=== PATIENT | female | born 1965 | race Caucasian/White ===

== ENCOUNTER → 2016-08-27 | Outpatient (CLI) | payer OTHER ==
--- NOTE | 2016-08-27 12:26 | PCVCIMAG ---
APPROVED REPORT Exam: Stress Echocardiogram Indication: Family hx of cad, smoking, abn. calcium score Patient Location: Echo lab Stress Nurse: Elmira Toscano RN Status: routine HR: 74 bpm Rhythm: NSR Procedure The patient underwent an Exercise Stress Test using the Wero Protocol. Blood pressure, heart rate, and EKG were monitored. An Echocardiogram was performed by cable television technician in four stages in quad fashion. At peak stress, four selected images were obtained and placed side by side with resting images for comparison. Stress Test Details Stress Test: Exercise stress testing was performed using a Wero protocol. HR Resting HR: 74 bpmMax Heart Rate (APMHR): 169 bpm Max HR Achieved: 157 bpmTarget HR (85% APMHR): 143 bpm % of APMHR: 92 HR response to stress: Normal HR response to stress BP Resting BP: 132/80 mmHg Max BP: 184/82 mmHg ECG Resting ECG: Sinus Rhythm Stress ECG: Sinus Rhythm Maximum ST Deviation: 0 mm Arrhythmia: None Recovery ECG: Sinus Rhythm Recovery ST Deviation: 0 mm Clinical Reason for Termination: Maximal effort Stress Symptoms: Dyspnea Exercise duration: 9 min 45 sec Highest Stage Achieved: Stage 3: 3.4 mph at 14% grade. Exercise capacity: 12.50 METs Pre-Stress Echo The resting Echocardiogram showed normal left ventricular contractility with an estimated Ejection Fraction of about >55%. Post-Stress Echo The stress Echocardiogram showed normal left ventricular contractility with an estimated Ejection Fraction of about 55-60%. Clinical Normal augmentation of myocardial wall segments using a 17 segment model. Conclusion Clinical Response: Non-ischemic Exercise Capacity: Average Stress ECG Response: Non-ischemic Stress Echo Images: Non-ischemic Other Information Study Quality: Adequate
== END | disposition home or self-care (01) ==
LOC: PCVCIMAG 10:55
PROVIDERS: ATTEND Internal Medicine
DX: I25.10 Atherosclerotic heart disease of native coronary artery without angina pectoris (principal); E83.52 Hypercalcemia; E78.5 Hyperlipidemia, unspecified; F17.200 Nicotine dependence, unspecified, uncomplicated; Z82.49 Family history of ischemic heart disease and other diseases of the circulatory system
CPT/HCPCS: 93325; 93351